=== PATIENT | male | born 1985 | race Caucasian/White ===

== ENCOUNTER 2018-08-15 15:38 | Emergency (ER) | payer MEDICAID, OTHER ==
[~2018-08-15] VITALS: Ht 190.5 cm; Wt 81.8 kg
[~2018-08-15 15:38] MED LIST: BUSP10TA23 PO; OLAN20TA2 PO
[2018-08-15] MEDS ORDERED: LITH300C3 PO (16:08)
[2018-08-15 18:43] VITALS: BP 127/90
== END 2018-08-15 18:58 | disposition home or self-care (01) ==
LOC: EMS 15:39
DX: F32.9 Major depressive disorder, single episode, unspecified (principal); F17.210 Nicotine dependence, cigarettes, uncomplicated; F15.90 Other stimulant use, unspecified, uncomplicated; F12.90 Cannabis use, unspecified, uncomplicated; F11.90 Opioid use, unspecified, uncomplicated; Z79.899 Other long term (current) drug therapy
CPT/HCPCS: 99406

== ENCOUNTER 2018-08-23 16:12 | Emergency (ER) | payer OTHER ==
[~2018-08-23] VITALS: Ht 190.5 cm; Wt 81.8 kg
[~2018-08-23 16:12] MED LIST changes: -BUSP10TA23 PO; +LITH300C3 PO
[2018-08-23] MEDS ORDERED: RISP1 PO (16:25)
[2018-08-23] MEDS ORDERED: BUSP10TA23 PO (16:25)
[2018-08-23 16:37] LABS: APPEARANCE,URINE CLEAR (CLEAR); BILIRUBIN,URINE NEGATIVE (NEGATIVE); GLUCOSE, URINE (UA) NEGATIVE (NEGATIVE); KETONES,URINE NEGATIVE (NEGATIVE); LEUKOCYTE ESTERASE ,URINE NEGATIVE (NEGATIVE); NITRATE,URINE NEGATIVE (NEGATIVE); OCCULT BLOOD,URINE NEGATIVE (NEGATIVE); PROTEIN,URINE NEGATIVE (NEGATIVE); UROBILINOGEN,URINE 0.2 mg/dL (<=1.0)
[2018-08-23 17:01] LABS: BACTERIA,URINE None Seen /HPF (None Seen); RBC,URINE None Seen /HPF (0-2); WBC,URINE 0-2 /HPF (0-5)
[2018-08-23 17:02] LABS: SQUAMOUS EPITHELIAL CELL,UR Rare /LPF (None Seen)
[2018-08-23] MEDS ORDERED: SULFAMETHOX/TRIMETH DS 800-160 MG/TABLET PO ONE (17:45)
[2018-08-23 18:35] VITALS: BP 133/75
== END 2018-08-23 18:41 | disposition home or self-care (01) ==
LOC: EMS 16:13
DX: N39.0 Urinary tract infection, site not specified (principal); F31.9 Bipolar disorder, unspecified; F12.90 Cannabis use, unspecified, uncomplicated; F11.90 Opioid use, unspecified, uncomplicated; F15.90 Other stimulant use, unspecified, uncomplicated

== ENCOUNTER 2018-08-27 19:00 | Emergency (ER) | payer MEDICAID, OTHER ==
[~2018-08-27] VITALS: Ht 190.5 cm; Wt 81.8 kg
[~2018-08-27 19:00] MED LIST changes: +BUSP10TA23 PO; +RISP1 PO
[2018-08-27] MEDS ORDERED: [UNRECOGNIZED DRUG - REMARK] PO (19:09)
[2018-08-27 19:52] LABS: APPEARANCE,URINE CLEAR (CLEAR); BILIRUBIN,URINE NEGATIVE (NEGATIVE); GLUCOSE, URINE (UA) NEGATIVE (NEGATIVE); KETONES,URINE NEGATIVE (NEGATIVE); LEUKOCYTE ESTERASE ,URINE NEGATIVE (NEGATIVE); NITRATE,URINE NEGATIVE (NEGATIVE); OCCULT BLOOD,URINE NEGATIVE (NEGATIVE); PROTEIN,URINE NEGATIVE (NEGATIVE)
[2018-08-27 20:04] LABS: BACTERIA,URINE None Seen /HPF (None Seen); RBC,URINE None Seen /HPF (0-2); SQUAMOUS EPITHELIAL CELL,UR Few /LPF (None Seen); WBC,URINE 0-2 /HPF (0-5)
[2018-08-27 21:11] VITALS: BP 139/86
== END 2018-08-27 21:11 | disposition home or self-care (01) ==
LOC: EMS 19:01
DX: R33.9 Retention of urine, unspecified (principal); R32 Unspecified urinary incontinence; R30.0 Dysuria; F31.9 Bipolar disorder, unspecified; F17.210 Nicotine dependence, cigarettes, uncomplicated; F15.90 Other stimulant use, unspecified, uncomplicated; F12.90 Cannabis use, unspecified, uncomplicated; F11.90 Opioid use, unspecified, uncomplicated; Z79.899 Other long term (current) drug therapy
CPT/HCPCS: 99406